=== PATIENT | male | born 1990 | race Caucasian/White ===

== ENCOUNTER 2019-02-28 14:43 | Emergency (ER) | payer OTHER ==
[~2019-02-28] VITALS: Ht 160 cm; Wt 71.7 kg
[2019-02-28] MEDS ORDERED: fentaNYL INJECTION 100 MCG/2 ML AMP ONE (14:55)
--- NOTE | 2019-02-28 15:00 | ED GU-Male ---
General Stated Complaint: BLOOD IN URINE Source: patient Exam Limitations: no limitations History of Present Illness Date Seen by Provider: Feb 28, 2019 Time Seen by Provider: 14:53 Initial Comments This 29-year-old white male presents with history of hematuria that he noted yesterday and pain in the left testicle that he noted this afternoon before he presented emergency department. Patient has had kidney stones always on the right in the past but with his previous 2 kidney stones has never had testicular pain. He denies any trauma to the testicles. He has had no associated fever or chill, nausea or vomiting, urethral discharge, or the possibility of a sexually transmitted disease. Allergies and Home Medications Allergies Coded Allergies: No Known Drug Allergies (Unverified , 02/28/19) Patient Home Medication List Home Medication List Reviewed: Yes Review of Systems Review of Systems Constitutional: No chills, No fever EENTM: no symptoms reported Respiratory: No cough Cardiovascular: No chest pain Gastrointestinal: No abdominal pain, No nausea, No vomiting Genitourinary: see HPI; denies burning, denies discharge, denies flank pain; other (left testicular pain) Musculoskeletal: No back pain Skin: No change in color, No rash Psychiatric/Neurological: No Symptoms Reported Endocrine: No Symptoms Reported Hematologic/Lymphatic: No Symptoms Reported Past Swbjmkx-Ujmxir-Zaznje Hx Past Med/Social Hx: Reviewed Nursing Past Med/Soc Hx Physical Exam Vital Signs Vital Signs - First Documented 02/28/19 15:08 Temp 98.6 Pulse 81 Resp 20 B/P (MAP) 127/81 (96) Pulse Ox 99 O2 Delivery Room Air Capillary Refill : Height, Weight, BMI Height: '" Weight: lbs. oz. kg; BMI Method: General Appearance: WD/WN, mild distress HEENT: normal ENT inspection Neck: normal inspection Cardiovascular: regular rate, rhythm Respiratory: lungs clear Gastrointestinal: non tender Male: normal genitalia, testicular tenderness (on the left. There is no significant swelling or erythema to the scrotum.) Back: normal inspection Extremities: normal range of motion Neurologic/Psychiatric: no motor/sensory deficits, alert, normal mood/affect Skin: normal color, warm/dry Progress/Results/Core Measures Suspected Sepsis SIRS Temperature: Pulse: Respiratory Rate: Laboratory Tests 02/28/19 15:08: White Blood Count 12.1H Blood Pressure / Mean: Laboratory Tests 02/28/19 15:08: Creatinine 0.73, Platelet Count 243, Total Bilirubin 0.9 Results/Orders Lab Results Laboratory Tests Test 02/28/19 14:45 02/28/19 15:08 Range/Units Urine Color YELLOW Urine Clarity SLIGHTLY CLOUDY Urine pH 6 5-9 Urine Specific [place] >=1.030 1.016-1.022 Urine Protein 2+ H NEGATIVE Urine Glucose (UA) NEGATIVE NEGATIVE Urine Ketones TRACE H NEGATIVE Urine Nitrite NEGATIVE NEGATIVE Urine Bilirubin NEGATIVE NEGATIVE Urine Urobilinogen 1.0 NORMAL MG/DL Urine Leukocyte Esterase 3+ H NEGATIVE Urine RBC (Auto) 3+ H NEGATIVE Urine RBC 10-25 H /HPF Urine WBC TNTC H /HPF Urine Crystals NONE /LPF Urine Bacteria FEW H /HPF Urine Casts NONE /LPF Urine Mucus NEGATIVE /LPF Urine Culture Indicated YES White Blood Count 12.1 H 4.3-11.0 10^3/uL Red Blood Count 4.85 4.35-5.85 10^6/uL Hemoglobin 13.8 13.3-17.7 G/DL Hematocrit 42 40-54 % Mean Corpuscular Volume 86 80-99 FL Mean Corpuscular Hemoglobin 28 25-34 PG Mean Corpuscular Hemoglobin Concent 33 32-36 G/DL Red Cell Distribution Width 11.9 10.0-14.5 % Platelet Count 243 130-400 10^3/uL Mean Platelet Volume 9.9 7.4-10.4 FL Neutrophils (%) (Auto) 80 H 42-75 % Lymphocytes (%) (Auto) 11 L 12-44 % Monocytes (%) (Auto) 7 0-12 % Eosinophils (%) (Auto) 2 0-10 % Basophils (%) (Auto) 0 0-10 % Neutrophils # (Auto) 9.7 H 1.8-7.8 X 10^3 Lymphocytes # (Auto) 1.3 1.0-4.0 X 10^3 Monocytes # (Auto) 0.9 0.0-1.0 X 10^3 Eosinophils # (Auto) 0.2 0.0-0.3 10^3/uL Basophils # (Auto) 0.1 0.0-0.1 10^3/uL Sodium Level 142 135-145 MMOL/L Potassium Level 3.9 3.6-5.0 MMOL/L Chloride Level 102 98-107 MMOL/L Carbon Dioxide Level 28 21-32 MMOL/L Anion Gap 12 5-14 MMOL/L Blood Urea Nitrogen 12 7-18 MG/DL Creatinine 0.73 0.60-1.30 MG/DL Estimat Glomerular Filtration Rate > 60 BUN/Creatinine Ratio 16 Glucose Level 93 70-105 MG/DL Calcium Level 9.4 8.5-10.1 MG/DL Corrected Calcium 8.5-10.1 MG/DL Total Bilirubin 0.9 0.1-1.0 MG/DL Aspartate Amino Transf (AST/SGOT) 15 5-34 U/L Alanine Aminotransferase (ALT/SGPT) 20 0-55 U/L Alkaline Phosphatase 103 40-136 U/L Total Protein 7.5 6.4-8.2 GM/DL Albumin 4.7 H 3.2-4.5 GM/DL My Orders Orders - PALMER RANGEL MD Fentanyl Injection (Sublimaze Injection (02/28/19 14:55) Cbc With Automated Diff (02/28/19 15:03) Ua Culture If Indicated (02/28/19 15:03) Comprehensive Metabolic Panel (02/28/19 15:03) Fentanyl Injection (Sublimaze Injection (02/28/19 15:15) Urine Culture (02/28/19 14:45) Medications Given in ED Current Medications Medications Dose Ordered Sig/Ciro Route Start Time Stop Time Status Last Admin Dose Admin Fentanyl Citrate 50 mcg ONCE ONCE IVP 02/28/19 15:15 02/28/19 15:16 DC 02/28/19 15:09 50 MCG Vital Signs/I&O 02/28/19 15:08 Temp 98.6 Pulse 81 Resp 20 B/P (MAP) 127/81 (96) Pulse Ox 99 O2 Delivery Room Air Capillary Refill : Progress Note : Time: 16:18 Progress Note The patient's urinalysis was suggestive of a urinary tract infection. His white count was moderately elevated above 12,000. The patient's complete metabolic panel is essentially within normal limits. I attempted to obtain a Doppler flow study of the testicles. I was unable to obtain that here at [place] or at [place]. I offered referral to [facility] or [facility]. The patient declined. I employed bedside ultrasound with flow and although I informed the patient and his that I'm not an cylinder press operator helper I believe I was able to see flow into both testicles. Patient's pain had been treated with 50 g fentanyl on arrival. I gave him an additional 50 g of fentanyl at time of discharge. I will place the patient on doxycycline for 2 weeks and asked to be followed closely with his primary care physician for this probable epididymitis on Monday. I gave him Vicodin 5 304 pain. I recommended scrotal support. Moist heat was discussed as a treatment modality. Patient is return to emergency department if he has not significantly improved over the next 24-48 hours. Departure Impression Primary Impression: Epididymitis, left Disposition: HOME, SELF-CARE Condition: Improved Departure-Patient Inst. Decision time for Depature: 16:21 Referrals: BURKE LUU MD Patient Instructions: Epididymitis (DC) Add. Discharge Instructions: Doxycycline and Vicodin as prescribed. Follow-up closely with urology. Return if any problems or questions. Scripts Hydrocodone/Acetaminophen (Vicodin 5-300 mg Tablet) 1 Each Tablet 1-2 EACH PO Q6H PRN for PAIN-MODERATE MDD 10 for 7 Days, #20 TAB Prov: PALMER RANGEL MD 02/28/19 Doxycycline Hyclate (Doxycycline Hyclate) 100 Mg Tablet 100 MG PO BID for 14 Days, #20 TAB 0 Refills Prov: PALMER RANGEL MD 02/28/19 PALMER RANGEL MD Feb 28, 2019 15:00
[2019-02-28] MEDS ORDERED: fentaNYL INJECTION 100 MCG/2 ML AMP IVP ONE ×2 (15:15→16:30)
[2019-02-28 15:24] LABS: HEMATOCRIT 42 % (40-54); HEMOGLOBIN 13.8 G/DL (13.3-17.7); MEAN CORPUSCULAR HEMOGLOBIN 28 PG (25-34); MEAN CORPUSCULAR VOLUME 86 FL (80-99); WHITE BLOOD COUNT 12.1 10^3/uL (4.3-11.0)
[2019-02-28 15:29] LABS: EOSINOPHILS % (AUTO) 2 % (0-10); LYMPHOCYTES % (AUTO) 11 % (12-44); MEAN CORPUSCULAR HGB CONC 33 G/DL (32-36); MEAN PLATELET VOLUME 9.9 FL (7.4-10.4); MONOCYTES % (AUTO) 7 % (0-12); PLATELET COUNT 243 10^3/uL (130-400); RED CELL DISTRIBUTION WIDTH 11.9 % (10.0-14.5)
[2019-02-28 15:30] LABS: BILIRUBIN,URINE NEGATIVE (NEGATIVE); CLARITY,URINE SLIGHTLY CLOUDY; COLOR,URINE YELLOW; GLUCOSE, URINE (UA) NEGATIVE (NEGATIVE); KETONES,URINE TRACE (NEGATIVE); NITRITE,URINE NEGATIVE (NEGATIVE); PH,URINE 6 (5-9); PROTEIN,URINE 2+ (NEGATIVE)
[2019-02-28 15:30] LABS: BASOPHILS # (AUTO) 0.1 10^3/uL (0.0-0.1); BASOPHILS % (AUTO) 0 % (0-10); EOSINOPHILS # (AUTO) 0.2 10^3/uL (0.0-0.3); LYMPHOCYTES # (AUTO) 1.3 X 10^3 (1.0-4.0); MONOCYTES # (AUTO) 0.9 X 10^3 (0.0-1.0); NEUTROPHILS # (AUTO) 9.7 X 10^3 (1.8-7.8); NEUTROPHILS % (AUTO) 80 % (42-75)
[2019-02-28 15:31] LABS: BACTERIA,URINE FEW /HPF; LEUKOCYTE ESTERASE ,URINE 3+ (NEGATIVE); WBC,URINE TNTC /HPF
[2019-02-28 15:45] LABS: ALANINE AMINOTRANSFERASE 20 U/L (0-55); ALBUMIN 4.7 GM/DL (3.2-4.5); ALKALINE PHOSPHATASE 103 U/L (40-136); BILIRUBIN,TOTAL 0.9 MG/DL (0.1-1.0); BUN/CREATININE RATIO 16; CALCIUM 9.4 MG/DL (8.5-10.1); CARBON DIOXIDE 28 MMOL/L (21-32); CHLORIDE 102 MMOL/L (98-107); CREATININE SERUM 0.73 MG/DL (0.60-1.30); GFR ESTIMATED > 60; GLUCOSE 93 MG/DL (70-105); POTASSIUM 3.9 MMOL/L (3.6-5.0); SODIUM 142 MMOL/L (135-145); TOTAL PROTEIN 7.5 GM/DL (6.4-8.2)
[2019-02-28] MEDS ORDERED: RX-DOXYCYCLINE 100 MG (VIBRAMYCIN) TAB PPK#2 PO ONE (16:15)
[2019-02-28] MEDS ORDERED: DOXYCYCLINE 100 MG (VIBRAMYCIN) TABLET ONE (16:19)
[2019-02-28] MEDS ORDERED: RX-HYDROCODONE/APAP 5/325 MG #4 TAB PK PO ONE (16:19)
[2019-02-28] MEDS ORDERED: DOXY100T2 PO (16:24)
[2019-02-28] MEDS ORDERED: HYDR-3455 PO (16:24)
[2019-02-28] MEDS ORDERED: DOXYCYCLINE 100 MG (VIBRAMYCIN) TABLET PO STA (16:41)
[2019-02-28 16:45] VITALS: BP 114/74
--- NOTE | 2019-03-01 12:15 | NUR ---
PT CALLED TO ER ET STATES HE CAN NOT GET HIS SCRIPT FOR VICODEN FILLED BECAUSE THE PHARMACIES HERE DOES NOT CARRY IT. DR NORTON WILL WRITE FOR DIFFERENT SCIPT AND PT WILL TURN IN SCRIPT THAT DR RANGEL WROTE.
== END 2019-02-28 16:45 | disposition home or self-care (01) ==
LOC: ER FS 14:46
DX: N45.1 Epididymitis (principal); Z87.442 Personal history of urinary calculi
CPT/HCPCS: 36415; 80053; 81000; 85025; 87088; 96374; 96376